=== PATIENT | male | born 1980 | race Caucasian/White ===

== ENCOUNTER 2021-08-02 19:08 | Inpatient (IN) | payer OTHER ==
--- NOTE | 2021-08-02 19:48 | ED ---
General Adult HPI - General Chief complaint: Psychiatric Symptoms Stated complaint: mental health Time Seen by Provider: 08/02/21 19:32 Source: patient, RN notes reviewed Mode of arrival: ambulatory Limitations: no limitations - History of Present Illness Initial comments: 40-year-old male with a past medical history of opioid dependence on Suboxone, methamphetamine use since to the emergency room for a chief complaint of hearing voices. Patient states for the past year he has been doing crystal meth. He states that he has been hearing voices for the past couple months telling him to stop. Patient states these voices are of the woman he has a crush on as well as her parents, his neighbors and his aunt. He states they sound 1000 miles away but he can hear them whispering. He states the voices are telling him to get off meth in the car trying to help him. Patient states this did actually work and he hasn't had meth for 2 weeks. However he continues to hear these voices. He is starting to think that they are real. Family brought him in because he is confronting the neighbors about this now.Patient has no other complaints at this time including shortness of breath, chest pain, abdominal pain, nausea or vomiting, headache, or visual changes. - Related Data Allergies Allergy/AdvReac Type Severity Reaction Status Date / Time No Known Allergies Allergy Verified 08/02/21 19:18 Review of Systems ROS Statement: Those systems with pertinent positive or pertinent negative responses have been documented in the HPI. ROS Other: All systems not noted in ROS Statement are negative. Past Medical History Past Medical History: No Reported History History of Any Multi-Drug Resistant Organisms: None Reported Past Surgical History: No Surgical Hx Reported Past Psychological History: No Psychological Hx Reported Smoking Status: Current every day smoker Past Alcohol Use History: None Reported Past Drug Use History: Methamphetamine General Exam Limitations: no limitations General appearance: alert, in no apparent distress Head exam: Present: atraumatic Eye exam: Present: normal appearance, PERRL, EOMI. Absent: scleral icterus, conjunctival injection ENT exam: Present: normal exam, mucous membranes moist Neck exam: Present: normal inspection, full ROM. Absent: tenderness Respiratory exam: Present: normal lung sounds bilaterally. Absent: respiratory distress, wheezes Cardiovascular Exam: Present: regular rate, normal rhythm, normal heart sounds Neurological exam: Present: alert Course Vital Signs 08/02/21 19:18 Temperature 97.4 F L Pulse Rate 76 Respiratory 18 Rate Blood Pressure 120/70 O2 Sat by Pulse 96 Oximetry Medical Decision Making - Medical Decision Making Patient was evaluated by EPS, will be admitted for inpatient psychiatric treatment, willing to sign himself in. Disposition Clinical Impression: Psychosis Disposition: TRANSFER TO PSYCH HOSP/UNIT Is patient prescribed a controlled substance at d/c from ED?: No Referrals: None,Stated [Primary Care Provider] - 1-2 days Time of Disposition: 20:45
[2021-08-02 20:47] LABS: Amphetamine Screen,Urine Not Detected (NotDetected); Barbiturate Screen,Urine Not Detected (NotDetected); Benzodiazepines Screen,Urine Not Detected (NotDetected); Cocaine Screen,Urine Not Detected (NotDetected); Methadone Screen, Urine Not Detected (NotDetected); Opiate Screen,Urine Not Detected (NotDetected); Oxycodone Screen, Urine Not Detected (NotDetected); Phencyclidine Screen,Urine Not Detected (NotDetected); Tricyclic Antidepressant,Urine Not Detected (NotDetected); Urn Cannabinoid Scrn Detected (NotDetected)
[2021-08-02] MEDS ORDERED: MAGNESIUM HYDROXIDE 2,400 MG/10 ML CUP PO PRN (21:40)
[2021-08-02] MEDS ORDERED: MAG HYDROX/AL HYDROX/SIMETH 30 ML CUP PO PRN (21:40)
[2021-08-02] MEDS ORDERED: ACETAMINOPHEN TAB 325 MG TAB PO PRN (21:40)
[2021-08-02] MEDS ORDERED: haloperidoL 5 MG TAB PO PRN (21:44)
[2021-08-02] MEDS ORDERED: LORazepam 2 MG/ML INJ IM PRN (21:44)
[2021-08-02] MEDS ORDERED: HALOPERIDOL LACTATE 5 MG/ML 1 ML VIAL IM PRN (21:44)
[2021-08-02] MEDS ORDERED: NICOTINE 21MG/24HR PATCH TRANSDERM STA (22:13)
--- NOTE | 2021-08-03 02:17 | P.CONS ---
History of Present Illness - Reason for Consult Consult date: 08/03/21 - History of Present Illness She will 40-year-old male with a PMH of polysubstance abuse including methamphetamine and marijuana who presented to the emergency room due to auditory hallucinations. The patient reports that over the past 2 months, he has been using methamphetamines as a way to improve his performance at his job. The patient is a superintendent construction. He reports a long-standing history of methamphetamine abuse but notes that his last use was 2 weeks ago. He notes that over the past 1 week however, he has been hearing voices multiple family members, telling him to stop using substances. He also seems to be preoccupied with his neighbor who he reports he has a crush on. He also reports intermittent sharp upper chest pain, very pleuritic, without associated diaphoresis, nausea, vomiting, and nonexertional. He denied abdominal pain, fever, chills, cough. Review of systems: Pertinent positives and negatives as discussed in HPI, a complete review of systems was performed and all other systems are negative. Physical examination: General: non toxic, no distress, appears at stated age, normal weight Derm: no unusual rashes/lesions no unusual ecchymoses, warm, dry Head: atraumatic, normocephalic, symmetric Eyes: EOMI, no lid lag, anicteric sclera, pupils equal round reactive to light ENT: Nose and ears atraumatic, no thrush, no pharyngeal erythema Neck: No thyromegaly, no cervical lymphadenopathy, trachea midline, supple Mouth: no lip lesion, mucus membranes moist Cardiovascular: S1S2 reg, no murmur, positive posterior tibial pulse bilateral, no edema, capillary refill less than 2 seconds Lungs: CTA bilateral, no rhonchi, no rales , no accessory muscle use Abdominal: soft, nontender to palpation, no guarding, no appreciable organomegaly, normal bowel sounds Ext: no gross muscle atrophy, muscle strength 5 out of 5 in all 4 extremities grossly, no contractures, Neuro: CN II-XI grossly intact, light touch intact all 4 extremities, finger to nose within normal limits, Psych: Alert, oriented, appropriate affect Assessment/plan Polysubstance abuse -Strongly advised on importance of cessation Chest pain, atypical -Obtain EKG -Likely muscle spasm Psychosis -As per psychiatry Thank you for allowing us to participate in the care of this patient. We will follow peripherally. Do not hesitate to contact us with questions. Someone can be reached from the [facility] hospitalist group at all hours of the day at [phone]. Past Medical History Past Medical History: No Reported History History of Any Multi-Drug Resistant Organisms: None Reported Past Surgical History: No Surgical Hx Reported Smoking Status: Current every day smoker - Past Family History Mother Family Medical History: Hypertension Medications and Allergies Home Medications Medication Instructions Recorded Confirmed Type No Known Home Medications 08/02/21 08/02/21 History Allergies Allergy/AdvReac Type Severity Reaction Status Date / Time No Known Allergies Allergy Verified 08/02/21 22:33 Physical Exam Vitals: Vital Signs Temp Pulse Pulse Resp BP BP Pulse Ox 08/02/21 22:35 97.8 F 53 L 16 119/76 99 08/02/21 19:18 97.4 F L 76 18 120/70 96 Intake and Output 08/02/21 08/02/21 08/03/21 14:59 22:59 06:59 Other: Weight 70.307 kg Results Labs: Abnormal Lab Results - Last 24 Hours (Table) 08/02/21 Range/Units 20:09 U Marijuana (THC) Screen Detected H (NotDetected)
[2021-08-03 08:35] LABS: ALT 15 U/L (4-49); AST 25 U/L (17-59); African American GFR (CKD) >90 (>60 ml/min/1.73 sqM); Albumin 4.3 g/dL (3.5-5.0); Alkaline Phosphatase 42 U/L (38-126); Anion Gap 6 mmol/L; Blood Urea Nitrogen 19 mg/dL (9-20); Calcium 9.7 mg/dL (8.4-10.2); Carbon Dioxide 29 mmol/L (22-30); Chloride 106 mmol/L (98-107); Glucose 96 mg/dL (74-99); Non-African American GFR(CKD) >90 (>60 ml/min/1.73 sqM); Potassium 4.2 mmol/L (3.5-5.1); Sodium 141 mmol/L (137-145); Total Bilirubin 0.5 mg/dL (0.2-1.3); Total Protein 7.3 g/dL (6.3-8.2)
[2021-08-03] MEDS ORDERED: PNEUMOCOCCAL VACC-PNEUMOVAX 23 25 MCG/0.5 ML VIAL IM ONE (09:00)
[2021-08-03] MEDS ORDERED: INFLUENZA VACC (6 MOS-64 YRS) 60 MCG/0.5 ML SYRINGE IM ONE (09:00)
--- NOTE | 2021-08-03 10:26 | P.HP ---
Psychiatric H&P - . H&P Date: 08/03/21 History & Physical: Allergies Allergy/AdvReac Type Severity Reaction Status Date / Time No Known Allergies Allergy Verified 08/02/21 22:33 Vital Signs Temp 97.8 F 08/02/21 22:35 Pulse 53 L 08/02/21 22:35 Resp 16 08/02/21 22:35 BP 119/76 08/02/21 22:35 Pulse Ox 99 08/02/21 22:35 Intake & Output 08/02/21 08/03/21 08/03/21 18:59 06:59 18:59 Weight 70.307 kg Laboratory Last Values Sodium 141 mmol/L (137-145) 08/03/21 08:01 Potassium 4.2 mmol/L (3.5-5.1) 08/03/21 08:01 Chloride 106 mmol/L (98-107) 08/03/21 08:01 Carbon Dioxide 29 mmol/L (22-30) 08/03/21 08:01 Anion Gap 6 mmol/L 08/03/21 08:01 BUN 19 mg/dL (9-20) 08/03/21 08:01 Creatinine 1.02 mg/dL (0.66-1.25) 08/03/21 08:01 Est GFR (CKD-EPI)AfAm >90 (>60 ml/min/1.73 sqM) 08/03/21 08:01 Est GFR (CKD-EPI)NonAf >90 (>60 ml/min/1.73 sqM) 08/03/21 08:01 Glucose 96 mg/dL (74-99) 08/03/21 08:01 Calcium 9.7 mg/dL (8.4-10.2) 08/03/21 08:01 Total Bilirubin 0.5 mg/dL (0.2-1.3) 08/03/21 08:01 AST 25 U/L (17-59) 08/03/21 08:01 ALT 15 U/L (4-49) 08/03/21 08:01 Alkaline Phosphatase 42 U/L (38-126) 08/03/21 08:01 Total Protein 7.3 g/dL (6.3-8.2) 08/03/21 08:01 Albumin 4.3 g/dL (3.5-5.0) 08/03/21 08:01 TSH 0.947 mIU/L (0.465-4.680) 08/03/21 08:01 Urine Opiates Screen Not Detected (NotDetected) 08/02/21 20:09 Ur Oxycodone Screen Not Detected (NotDetected) 08/02/21 20:09 Urine Methadone Screen Not Detected (NotDetected) 08/02/21 20:09 Ur Propoxyphene Screen Not Detected (NotDetected) 08/02/21 20:09 Ur Barbiturates Screen Not Detected (NotDetected) 08/02/21 20:09 U Tricyclic Antidepress Not Detected (NotDetected) 08/02/21 20:09 Ur Phencyclidine Scrn Not Detected (NotDetected) 08/02/21 20:09 Ur Amphetamines Screen Not Detected (NotDetected) 08/02/21 20:09 U Methamphetamines Scrn Not Detected (NotDetected) 08/02/21 20:09 U Benzodiazepines Scrn Not Detected (NotDetected) 08/02/21 20:09 Urine Cocaine Screen Not Detected (NotDetected) 08/02/21 20:09 U Marijuana (THC) Screen Detected (NotDetected) H 08/02/21 20:09 Coronavirus (PCR) Not Detected (Not Detectd) 08/02/21 21:00 08/03/21 10:20 IDENTIFYING DATA: Patient is a 40-year-old male with a history of polysubstance abuse who currently lives with his parents's divorce has 1 daughter and is unemployed. HPI: Patient presented to the hospital yesterday was brought in by his family due to him hearing voices acting bizarre at home and having delusions about the neighbor and even confronted the neighbor about them. Patient has a history of polysubstance abuse most currently using significant amount of crystal meth. He had a positive urine drug screen for marijuana. Patient was seen lying in his bed today and agreeable to seek to read in the office. He appears to be fairly thin and have poor hygiene and grooming. He states that he has been "fighting substance abuse" for years now. He states that after his divorce several years ago his substance use got worse. He states that he has been taking Suboxone from his friend who is getting prescribed it for the past 2 years and has been dosing it himself. He states that now he takes approximately 4 mg a day. He claims that for the past 2 years she is also engaged in use of crystal meth. He states that this habit has been worsening and states that he uses up to 3 times a day. He claims that in March he started hearing voices and states that at first the voices were negative and were distressing to him. He claims that after a while he started hearing relatives and family members and also his neighbor talking him. He claims that 16 days ago he quit using substances cold and claims that he was still hearing voices. He states that the voices became more positive towards him. He claims that he was believing that the neighbor's daughter was in love with him and he went to his neighbor house and started banging on their door and the neighbor was concerned about him as he did not know what he was talking about. He states that he was still hearing voices up until he came to the hospital. He states that he was picking at his skin but that has stopped. He states his sleep has been poor. But has been fair. Denying any paranoia today. Patient denies any current suicidal or homicidal ideations intent or plan. At this time patient denies any auditory or visual hallucinations. Patient denies any flight of ideas racing thoughts and increased in goal directed behavior. Patient admits to using crystal meth as described above. He also smokes cigarettes daily and uses Suboxone as described above. PAST PSYCHIATRIC HISTORY: Patient states that he has a history of ADHD and a mood disorder. Times that he was on Prozac in the past, Celexa Abilify and latuda. Patient denies any previous psychiatric hospitalizations. Patient denies any psychiatric outpatient follow-up. Patient denies any history of suicide attempts in the past. PMH:denies ALLERGIES: as per EMR CHEMICAL DEPENDENCY HISTORY: as per HPI FAMILY PSYCHIATRIC/SUBSTANCE USE HISTORY: denies SOCIAL HISTORY: Patient was born and raised in [facility]. He states that he completed high school. He states that he was in the [employer] for 4 years. He claims that he worked various jobs in the past. He states that he was in detention in the past for probation violation related to drug charges.. MENTAL STATUS EXAM: General Appearance: Patient appears to be ", tall, stated age is alert, directable, and attempts to cooperate. Patient appears to have poor hygiene and grooming. Behavior: Patient is seated without any agitated behavior. Speech: Patient's speech is fluent and nonpressured. Mood/Affect: Patient reports their mood is "okay", affect is congruent and constricted. Suicidality/Homicidality: Patient denies having any homicidal ideation intent or plan. Denies any suicidal ideations intent or plan Perceptions: Patient denies any visual hallucinations and denies any auditory hallucinations Though content/process: There is no evidence of any delusional thought content and thought process is linear and goal-directed. Rambles at times. Memory and concentration: AOX3, grossly intact for the purposes of this session. Can spell "WORLD" backwards Judgment and insight: poor STRENGTHS/WEAKNESSES: strength is that patient is resilient. Weakness is that patient has poor judgment and is impulsive INTELLECT: average IMPRESSIONS: Substance-induced psychotic episode Methamphetamine use disorder Cannabis use disorder Nicotine dependence PLAN: -Patient is admitted under voluntary status to [facility] for stabilization of psychiatric symptoms and safety. Patient has signed adult voluntary form and medication consent and is placed in patient's chart. -Medications : Will start patient on paliperidone by mouth 3 mg daily at bedtime for psychosis. Cymbalta 30 mg daily for mood/pain. -Ativan [and Haldol] PRN for agitation/aggression [-Patient was counselled on substance abuse and desired to cut back on use. She states that he does not know if he wants to go to rehab at this point or not.] -Patient was informed of the risks, benefits and side effects of the medication and patient verbally consented to taking the medications. Patient signed med consent form and was placed in chart. -Internal Medicine consult to perform medical evaluation and physical. -NRT - [nicotine patch] -SW on board for discharge planning. Encourage patient to participate in groups to work on coping skills. We'll continue discussing option of rehab with patient. []
[2021-08-03] MEDS: DULoxetine HCL 30 MG CAPSULE.DR PO SCH (10:28)
[2021-08-03] MEDS: NICOTINE 14MG/24HR PATCH TRANSDERM SCH (10:28)
[2021-08-03 11:39] LABS: Chol/HDL Ratio 5.15 Ratio; LDL Cholesterol,Calculated 151.7 mg/dL (0.0-131.0); VLDL Calculation 17.48 mg/dL (5.00-40.00)
[2021-08-03] MEDS: PALIPERIDONE 3 MG TAB.ER.24 PO SCH (21:14)
[2021-08-03] MEDS: LORazepam 1 MG TAB PO PRN (23:32)
[2021-08-04 06:38] VITALS: RESP 18
[2021-08-04] MEDS: DULoxetine HCL 30 MG CAPSULE.DR PO SCH (08:33)
[2021-08-04] MEDS: NICOTINE 14MG/24HR PATCH TRANSDERM SCH (08:33)
[2021-08-04] MEDS: FLUTICASONE 50MCG/SPRAY NASAL 16GM EA NOSTRIL PRN ×2 (08:34→21:26)
--- NOTE | 2021-08-04 10:14 | P.PN ---
Progress Note - Text Progress Note Date: 08/04/21 Interval History: Patient was seen taking part in group this morning and was directable and agre eable to speak with automatic typewriter inspector in the office. Patient appears to be calmer and have a brighter affect today. He states that he is feeling "200% better today". He described an improvement in his anxiety and his mood. He states that last night he needed to take an Ativan due to restless leg symptoms that he has had in the past which occurred last night. He was agreeable to take Requip tonight. He states that he is going to groups and participating as best as he can to learn distress tolerance and other coping skills. He states that he feels that he may go to rehab however will need to think about it for a week or 2 once he is discharged. At this time patient denies any suicidal or homical ideations, intent or plan. Patient denies any auditory, visual hallucinations and denies any paranoia or delusions. Patient denies any side effects from the medications and has been compliant with meds. Mental Status Exam: General Appearance: Patient appears to be tall, thin, stated age is alert, d irectable, and attempts to cooperate. Patient appears to have improved hygiene and grooming. Behavior: Patient is seated without any agitated behavior. More cooperative today Speech: Patient's speech is fluent and nonpressured. Mood/Affect: Patient reports their mood is "ok", affect is congruent and constricted. Suicidality/Homicidality: Patient denies having any homicidal ideation intent or plan. Denies any suicidal ideations intent or plan Perceptions: Patient denies any visual hallucinations and denies any auditory hallucinations Though content/process: There is no evidence of any delusional thought content and thought process is linear and goal-directed. Memory and concentration: AOX3, grossly intact for the purposes of this session. Can spell "WORLD" backwards Judgment and insight: Improving mildly AssessmentSubstance-induced psychotic episode Methamphetamine use disorder Cannabis use disorder Nicotine dependence Plan: -Patient continues to meet criteria for inpatient psychiatric admission for symptom stabilization and safety. Patient has signed adult voluntary form and medication consent and was placed in patient's chart. -Medications: Continue paliperidone by mouth 3 mg daily at bedtime for psychosis, Cymbalta 30 mg daily for mood/pain, added Requip 0.25 mg daily at bedtime for restless leg symptoms. -When necessary Ativan and Haldol for agitation/aggression. -NRT - nicotine patch -SW on board for discharge planning. Encouraged the patient to participate in milieu. Patient was once again offered access line to get into rehab however he states that he wants to think about it at home and discuss it more with his ex- and his parents in at this time is declining. Likely discharge tomorrow.
[2021-08-04] MEDS: PALIPERIDONE 3 MG TAB.ER.24 PO SCH (21:24)
[2021-08-04] MEDS: LORazepam 1 MG TAB PO PRN (23:43)
[2021-08-04 23:45] VITALS: BP 133/71; PULSE 75; TEMP 98.7
[2021-08-05] MEDS: DULoxetine HCL 30 MG CAPSULE.DR PO SCH (08:17)
[2021-08-05] MEDS: FLUTICASONE 50MCG/SPRAY NASAL 16GM EA NOSTRIL PRN (08:17)
[2021-08-05] MEDS: NICOTINE 14MG/24HR PATCH TRANSDERM SCH (08:17)
--- NOTE | 2021-08-05 09:23 | P.DS ---
Providers Date of admission: 08/02/21 21:37 Expected date of discharge: 08/05/21 Attending physician: Rock Robles MD Consults: 08/02/21 21:40 Consult Physician Routine Consulting Provider: Kassie Physician Consult Reason/Comments: H&P for mental health admission Do you want consulting provider notified?: Yes Primary care physician: Stated None - Discharge Diagnosis(es) (1) Substance-induced psychotic disorder Current Visit: Yes Status: Acute Priority: High (2) Methamphetamine abuse Current Visit: Yes Status: Acute Priority: High (3) Cannabis use disorder, mild, abuse Current Visit: Yes Status: Acute Priority: Medium (4) Nicotine dependence Current Visit: Yes Status: Acute Priority: Low Hospital Course: Admission HPI: Admission note was completed by policy writer sales "Patient is a 40-year-old male with a history of polysubstance abuse who currently lives with his parents's divorce has 1 daughter and is unemployed. Patient presented to the hospital yesterday was brought in by his family due to him hearing voices acting bizarre at home and having delusions about the neighbor and even confronted the neighbor about them. Patient has a history of polysubstance abuse most currently using significant amount of crystal meth. He had a positive urine drug screen for marijuana. Patient was seen lying in his bed today and agreeable to seek to read in the office. He appears to be fairly thin and have poor hygiene and grooming. He states that he has been "fighting substance abuse" for years now. He states that after his divorce several years ago his substance use got worse. He states that he has been taking Suboxone from his friend who is getting prescribed it for the past 2 years and has been dosing it himself. He states that now he takes approximately 4 mg a day. He claims that for the past 2 years she is also engaged in use of crystal meth. He states that this habit has been worsening and states that he uses up to 3 times a day. He claims that in March he started hearing voices and states that at first the voices were negative and were distressing to him. He claims that after a while he started hearing relatives and family members and also his neighbor talking him. He claims that 16 days ago he quit using substances cold turkey and claims that he was still hearing voices. He states that the voices became more positive towards him. He claims that he was believing that the neighbor's daughter was in love with him and he went to his neighbor house and started banging on their door and the neighbor was concerned about him as he did not know what he was talking about. He states that he was still hearing voices up until he came to the hospital. He states that he was picking at his skin but that has stopped. He states his slee p has been poor. But has been fair. Denying any paranoia today. Patient denies any current suicidal or homicidal ideations intent or plan. At this time patient denies any auditory or visual hallucinations. Patient denies any flight of ideas racing thoughts and increased in goal directed behavior. Patient admits to using crystal meth as described above. He also smokes cigarettes daily and uses Suboxone as described above." Hospital course: Upon admission to the unit patient was directable and agreeable to commence treatment and signed adult voluntary form . Patient got along well with other patients on the unit and followed unit protocol. Patient was compliant with the medications and denied any side effects throughout hospital course. Patient was started on paliperidone by mouth 3 mg daily at bedtime for psychosis, Cymbalta 30 mg daily for mood/pain, Requip 0.25 mg daily at bedtime for restless leg symptoms. Patient spoke of his stressors and engaged in therapy both group and individual. Patient was also seen by medical team for history and physical exam. Throughout the course of the hospitalization patient gradually improved with regards to mood, anxiety, hallucination/psychosis, sleep and became more future oriented with improved insight and judgment. On the day of discharge patient denied any suicidal or homicidal ideations intent or plan denied any auditory or visual hallucinations. Patient endorsed wanting to live for [his health and family.] The patient denied any access to guns or weapons. Patient denied any paranoia and did not endorse any delusions. Patient does have a significant history of substance abuse [and] was counseled on abstaining from all substances including alcohol and marijuana. Patient was offered inpatient substance abuse rehab however claims that he would like to think about it and discuss it more with his family once he is discharged. Patient was also counseled on the medications and need for regular compliance and was encouraged to follow-up with their outpatient appointment for mental health and also for primary care. [Prior to discharge a family meeting will be arranged by web content & social media manager to answer any questions and ensure safety upon discharge.] [] Mental status exam: General Appearance: Patient appears to be thin, stated age is alert, pleasant, and cooperative. Patient is in no acute distress and has improved hygiene and grooming Behavior: Patient is calmly seated without any agitated behavior. Speech: Patient's speech is fluent and nonpressured. Mood/Affect: Patient reports their mood is "[better]", affect is congruent and euthymic. Suicidality/Homicidality: Patient denies having any suicidal or homicidal ideation intent or plan. Perceptions: Patient denies any auditory or visual hallucinations. Though content/process: There is no evidence of any delusional thought content and thought process is linear and goal-directed. [more future oriented] Memory and concentration: AOX3, grossly intact for the purposes of this session. Can spell "WORLD" backwards correctly. Judgment and insight: [chronically poor, however has] improved with guarded prognosis Impression: Substance-induced psychotic disorder Methamphetamine abuse Cannabis use disorder mild Nicotine dependence Plan: -Continue with discharge today as patient has improved and stabilized psychiatrically and is not currently an imminent threat to [himself] and/or others. [Patient will remain at chronically elevated risk for harm to self and/or others due to his impulsivity and polysubstance abuse.] -Continue medications: Paliperidone by mouth 3 mg daily at bedtime for psychosis, Cymbalta 30 mg daily for mood/pain, Requip 0.25 mg daily at bedtime for restless leg symptoms. -Patient was counseled on the need for medication compliance and appropriate follow-up at mental health and also primary care for medical issues. Patient verbalized understanding and agreed. -Social work to [arrange for and conduct family meeting to ensure safety upon discharge and answer any questions/concerns.] Social work also to arrange for patients follow up appointments [with [facility]] for psychiatric care along with follow up with primary care provider. -Patient counseled on abstaining from recreational drugs and marijuana and alcohol. Was informed/educated on the adverse effects on their physical and mental health. [Patient verbally agreed and understood]. Patient was offered substance rehab however claims that he would like to think about it first before going. -Patient was instructed to return to the hospital or seek immediate medical care if their psychiatric or medical symptoms do worsen or reoccur. Allergies Allergy/AdvReac Type Severity Reaction Status Date / Time No Known Allergies Allergy Verified 08/02/21 22:33 Laboratory Results Sodium 141 mmol/L (137-145) 08/03/21 08:01 Potassium 4.2 mmol/L (3.5-5.1) 08/03/21 08:01 Chloride 106 mmol/L (98-107) 08/03/21 08:01 Carbon Dioxide 29 mmol/L (22-30) 08/03/21 08:01 Anion Gap 6 mmol/L 08/03/21 08:01 BUN 19 mg/dL (9-20) 08/03/21 08:01 Creatinine 1.02 mg/dL (0.66-1.25) 08/03/21 08:01 Est GFR (CKD-EPI)AfAm >90 (>60 ml/min/1.73 sqM) 08/03/21 08:01 Est GFR (CKD-EPI)NonAf >90 (>60 ml/min/1.73 sqM) 08/03/21 08:01 Glucose 96 mg/dL (74-99) 08/03/21 08:[address] Glu mg/dL 111 08/03/21 08:01 Hemoglobin A1c 5.5 % (4.0-6.0) 08/03/21 08:01 Calcium 9.7 mg/dL (8.4-10.2) 08/03/21 08:01 Total Bilirubin 0.5 mg/dL (0.2-1.3) 08/03/21 08:01 AST 25 U/L (17-59) 08/03/21 08:01 ALT 15 U/L (4-49) 08/03/21 08:01 Alkaline Phosphatase 42 U/L (38-126) 08/03/21 08:01 Total Protein 7.3 g/dL (6.3-8.2) 08/03/21 08:01 Albumin 4.3 g/dL (3.5-5.0) 08/03/21 08:01 Triglycerides 87.40 mg/dL (0.00-149.00) 08/03/21 08:01 Cholesterol 210.00 mg/dL (0.00-200.00) H 08/03/21 08:01 LDL Cholesterol, Calc 151.7 mg/dL (0.0-131.0) H 08/03/21 08:01 VLDL Cholesterol, Calc 17.48 mg/dL (5.00-40.00) 08/03/21 08:01 HDL Cholesterol 40.80 mg/dL (40.00-60.00) 08/03/21 08:01 Cholesterol/HDL Ratio 5.15 Ratio 08/03/21 08:01 TSH 0.947 mIU/L (0.465-4.680) 08/03/21 08:01 Urine Opiates Screen Not Detected (NotDetected) 08/02/21 20:09 Ur Oxycodone Screen Not Detected (NotDetected) 08/02/21 20:09 Urine Methadone Screen Not Detected (NotDetected) 08/02/21 20:09 Ur Propoxyphene Screen Not Detected (NotDetected) 08/02/21 20:09 Ur Barbiturates Screen Not Detected (NotDetected) 08/02/21 20:09 U Tricyclic Antidepress Not Detected (NotDetected) 08/02/21 20:09 Ur Phencyclidine Scrn Not Detected (NotDetected) 08/02/21 20:09 Ur Amphetamines Screen Not Detected (NotDetected) 08/02/21 20:09 U Methamphetamines Scrn Not Detected (NotDetected) 08/02/21 20:09 U Benzodiazepines Scrn Not Detected (NotDetected) 08/02/21 20:09 Urine Cocaine Screen Not Detected (NotDetected) 08/02/21 20:09 U Marijuana (THC) Screen Detected (NotDetected) H 08/02/21 20:09 Coronavirus (PCR) Not Detected (Not Detectd) 08/02/21 21:00 Vital Signs Temp 98.7 F 08/04/21 23:44 Pulse 75 08/04/21 23:44 Resp 18 08/04/21 23:44 BP 133/71 08/04/21 23:44 Pulse Ox 100 08/03/21 10:32 Patient Condition at Discharge: Stable Plan - Discharge Summary Discharge Rx Participant: No New Discharge Prescriptions: New Fluticasone Nasal [place] [Flonase Nasal [place]] 2 spray EA NOSTRIL DAILY PRN gm PRN Reason: Allergy Symptoms Paliperidone [Invega] 3 mg PO HS 30 Days tablet rOPINIRole HCL [Requip] 0.25 mg PO HS 30 Days tab Acetaminophen Tab [Tylenol] 650 mg PO Q4HR PRN tab PRN Reason: Pain/Discomfort DULoxetine HCL [Cymbalta] 30 mg PO DAILY 30 Days Nicotine 14Mg/24Hr Patch [Habitrol] 1 patch TRANSDERM DAILY 14 Days patch Discharge Medication List Acetaminophen Tab [Tylenol] 650 mg PO Q4HR PRN tab 08/05/21 [Rx] DULoxetine HCL [Cymbalta] 30 mg PO DAILY 30 Days 08/05/21 [Rx] Fluticasone Nasal [place] [Flonase Nasal [place]] 2 spray EA NOSTRIL DAILY PRN gm 08/05/21 [Rx] Nicotine 14Mg/24Hr Patch [Habitrol] 1 patch TRANSDERM DAILY 14 Days patch 08/05/21 [Rx] Paliperidone [Invega] 3 mg PO HS 30 Days tablet 08/05/21 [Rx] rOPINIRole HCL [Requip] 0.25 mg PO HS 30 Days tab 08/05/21 [Rx] Follow up Appointment(s)/Referral(s): None,Stated [Primary Care Provider] - 1-2 days Activity/Diet/Wound Care/Special Instructions: Activity and diet as tolerated. Avoid the use of street drugs and alcohol. Take all medications as prescribed. When you are in need of refills on your medications please contact your medical provider and/or outpatient psychiatrist to have this done. Please go to scheduled outpatient appointment for aftercare treatment. If symptoms return or become worse, call the crisis line at and/or go to the nearest emergency room for evaluation. Discharge Disposition: HOME SELF-CARE
== END 2021-08-05 12:26 | disposition home or self-care (01) | DRG 897 ==
LOC: EC 19:08 → 3MHU 21:37
PROVIDERS: ADMIT Psychiatry & Neurology Psychiatry; ATTEND Psychiatry & Neurology Psychiatry
DX: F15.159 Other stimulant abuse with stimulant-induced psychotic disorder, unspecified (principal); F11.20 Opioid dependence, uncomplicated; F12.10 Cannabis abuse, uncomplicated; F41.9 Anxiety disorder, unspecified; R07.89 Other chest pain; Z20.822 Contact with and (suspected) exposure to COVID-19; F90.9 Attention-deficit hyperactivity disorder, unspecified type; G25.81 Restless legs syndrome; F17.210 Nicotine dependence, cigarettes, uncomplicated; Z71.6 Tobacco abuse counseling; Z56.0 Unemployment, unspecified; Z82.49 Family history of ischemic heart disease and other diseases of the circulatory system
CPT/HCPCS: 80053; 80061; 80306; 82075; 83036; 84443; 87635; 90686; 90732; 93005; 99285